=== PATIENT | female | born 1935 | race Caucasian/White ===

== ENCOUNTER 2016-06-24 19:43 | Inpatient (IN) | payer MEDICARE ==
[2016-06-24] MEDS: Sotalol HCl 80 MG TAB PO SCH (22:31)
[2016-06-24] MEDS: Apixaban 5 MG TAB PO SCH (22:37)
[2016-06-24] MEDS: Cephalexin 250 MG CAP PO SCH (22:38)
[2016-06-24] MEDS: Atorvastatin Calcium 10 MG TAB PO SCH (22:38)
[2016-06-24 23:06] VITALS: BMI 20.9
[2016-06-25] MEDS: Oxybutynin Chloride 5 MG TAB PO SCH (08:41)
[2016-06-25] MEDS: Cephalexin 250 MG CAP PO SCH ×4 (08:41→20:34)
[2016-06-25] MEDS: Sotalol HCl 80 MG TAB PO SCH ×2 (08:42→20:38)
[2016-06-25] MEDS: Apixaban 5 MG TAB PO SCH ×2 (08:43→20:37)
[2016-06-25] MEDS: Cyanocobalamin (Vitamin B-12) 1,000 MCG TAB PO SCH (08:45)
[2016-06-25] MEDS: Lisinopril 10 MG TAB PO SCH (14:51)
[2016-06-25] MEDS: traMADol HCl 50 MG TAB PO PRN (17:46)
[2016-06-25] MEDS: Atorvastatin Calcium 10 MG TAB PO SCH (20:37)
[2016-06-26 05:36] LABS: #Basophils 0.1 thou/uL (0.0-0.2); #Eosinphils 0.4 thou/uL (0.0-0.7); #Lymphocytes 2.5 thou/uL (1.20-3.40); #Monocytes 0.8 thou/uL (0.11-0.59); #Neutrophils 4.1 thou/uL (1.40-6.50); %Basophils 1.2 % (0.0-1.0); %Monocytes 10.6 % (0.0-10.0); Hematocrit 37.2 % (36.0-47.0); Mean Platelet Volume 7.7 fL (7.4-10.4); Red Blood Cell (RBC) Count 4.31 mill/uL (4.20-5.40); White Blood Cell (WBC) Count 7.9 thou/uL (4.8-10.8)
[2016-06-26 05:43] LABS: Anion Gap 14 mmol/L (10-20); BUN (Urea Nitrogen) 13 mg/dL (9.8-20.1); Calc. Creatinine Clearance 49 mL/min (70-130); Calcium 8.7 mg/dL (7.8-10.44); Carbon Dioxide 22 mmol/L (23-31); Chloride 95 mmol/L (98-107); Estimated GFR-MDRD 64
[2016-06-26] MEDS ORDERED: Meclizine HCl 25 MG TAB PO PRN (07:11)
[2016-06-26] MEDS ORDERED: Ondansetron ODT 4 MG TAB PO PRN (07:11)
[2016-06-26] MEDS: Cephalexin 250 MG CAP PO SCH ×4 (09:11→21:36)
[2016-06-26] MEDS: Lisinopril 10 MG TAB PO SCH (09:11)
[2016-06-26] MEDS: Apixaban 5 MG TAB PO SCH ×2 (09:12→21:34)
[2016-06-26] MEDS: Cyanocobalamin (Vitamin B-12) 1,000 MCG TAB PO SCH (09:13)
[2016-06-26] MEDS: Sotalol HCl 80 MG TAB PO SCH ×2 (09:13→21:34)
[2016-06-26] MEDS: Oxybutynin Chloride 5 MG TAB PO SCH (09:13)
[2016-06-26] MEDS: traMADol HCl 50 MG TAB PO PRN (21:35)
[2016-06-26] MEDS: Atorvastatin Calcium 10 MG TAB PO SCH (21:36)
[2016-06-27] MEDS: Cephalexin 250 MG CAP PO SCH ×4 (10:03→21:34)
[2016-06-27] MEDS: Oxybutynin Chloride 5 MG TAB PO SCH (10:04)
[2016-06-27] MEDS: Apixaban 5 MG TAB PO SCH ×2 (10:04→21:39)
[2016-06-27] MEDS: Lisinopril 10 MG TAB PO SCH (10:04)
[2016-06-27] MEDS: Sotalol HCl 80 MG TAB PO SCH ×2 (10:05→21:35)
[2016-06-27] MEDS: Cyanocobalamin (Vitamin B-12) 1,000 MCG TAB PO SCH (10:05)
[2016-06-27] MEDS: traMADol HCl 50 MG TAB PO PRN (21:40)
[2016-06-27] MEDS: Atorvastatin Calcium 10 MG TAB PO SCH (21:40)
[2016-06-28] MEDS: Apixaban 5 MG TAB PO SCH ×2 (08:40→21:38)
[2016-06-28] MEDS: Cyanocobalamin (Vitamin B-12) 1,000 MCG TAB PO SCH (08:41)
[2016-06-28] MEDS: Cephalexin 250 MG CAP PO SCH ×4 (08:41→21:38)
[2016-06-28] MEDS: Oxybutynin Chloride 5 MG TAB PO SCH (08:42)
[2016-06-28] MEDS: Polyethylene Glycol 3350 17 GM Packet PO SCH (08:43)
[2016-06-28] MEDS: Lisinopril 10 MG TAB PO SCH (10:00)
[2016-06-28] MEDS: Sotalol HCl 80 MG TAB PO SCH ×2 (12:09→21:39)
[2016-06-28] MEDS: Atorvastatin Calcium 10 MG TAB PO SCH (21:38)
[2016-06-28] MEDS: traMADol HCl 50 MG TAB PO PRN (21:38)
[2016-06-29] MEDS ORDERED: Milk Of Magnesia 30 ML UDCUP PO SCH (07:45)
[2016-06-29] MEDS: Oxybutynin Chloride 5 MG TAB PO SCH (09:26)
[2016-06-29] MEDS: Sotalol HCl 80 MG TAB PO SCH ×2 (09:26→20:45)
[2016-06-29] MEDS: Cephalexin 250 MG CAP PO SCH ×3 (09:26→17:18)
[2016-06-29] MEDS: Cyanocobalamin (Vitamin B-12) 1,000 MCG TAB PO SCH (09:27)
[2016-06-29] MEDS: Polyethylene Glycol 3350 17 GM Packet PO SCH (09:28)
[2016-06-29] MEDS: Apixaban 5 MG TAB PO SCH ×2 (09:28→20:45)
[2016-06-29] MEDS ORDERED: Milk Of Magnesia 30 ML UDCUP PO PRN (10:45)
[2016-06-29] MEDS: Atorvastatin Calcium 10 MG TAB PO SCH (20:45)
[2016-06-30 06:39] LABS: ALT (SGPT) 9 U/L (0-55); AST (SGOT) 20 U/L (5-34); Alkaline Phosphatase 86 U/L (40-150); Anion Gap 12 mmol/L (10-20); BUN (Urea Nitrogen) 14 mg/dL (9.8-20.1); Bilirubin, Total 0.4 mg/dL (0.2-1.2); Calc. Creatinine Clearance 45 mL/min (70-130); Carbon Dioxide 26 mmol/L (23-31); Chloride 95 mmol/L (98-107); Estimated GFR-MDRD 58; Globulin 3.7 g/dL (2.4-3.5); Protein, Total 6.9 g/dL (5.8-8.1)
[2016-06-30] MEDS: Sotalol HCl 80 MG TAB PO SCH ×2 (08:46→20:45)
[2016-06-30] MEDS: Polyethylene Glycol 3350 17 GM Packet PO SCH (08:46)
[2016-06-30] MEDS: Sulfameth/Trimethoprim DS 800-160mg TAB PO SCH ×2 (08:47→20:48)
[2016-06-30] MEDS: Oxybutynin Chloride 5 MG TAB PO SCH (08:47)
[2016-06-30] MEDS: Apixaban 5 MG TAB PO SCH ×2 (08:48→20:44)
[2016-06-30] MEDS: Cyanocobalamin (Vitamin B-12) 1,000 MCG TAB PO SCH (08:48)
[2016-06-30] MEDS: Atorvastatin Calcium 10 MG TAB PO SCH (20:44)
[2016-06-30] MEDS: traMADol HCl 50 MG TAB PO PRN (21:12)
[2016-07-01] MEDS: Apixaban 5 MG TAB PO SCH ×2 (08:43→20:55)
[2016-07-01] MEDS: Polyethylene Glycol 3350 17 GM Packet PO SCH (08:43)
[2016-07-01] MEDS: Cyanocobalamin (Vitamin B-12) 1,000 MCG TAB PO SCH (08:44)
[2016-07-01] MEDS: Oxybutynin Chloride 5 MG TAB PO SCH (08:44)
[2016-07-01] MEDS: Sotalol HCl 80 MG TAB PO SCH ×2 (08:45→20:53)
[2016-07-01] MEDS: Sulfameth/Trimethoprim DS 800-160mg TAB PO SCH ×2 (08:45→20:55)
[2016-07-01] MEDS: traMADol HCl 50 MG TAB PO PRN ×2 (09:05→20:56)
[2016-07-01] MEDS: Atorvastatin Calcium 10 MG TAB PO SCH (20:53)
[2016-07-02] MEDS: Apixaban 5 MG TAB PO SCH ×2 (08:50→21:05)
[2016-07-02] MEDS: Sulfameth/Trimethoprim DS 800-160mg TAB PO SCH ×2 (08:50→21:08)
[2016-07-02] MEDS: Sotalol HCl 80 MG TAB PO SCH ×2 (08:51→21:07)
[2016-07-02] MEDS: Cyanocobalamin (Vitamin B-12) 1,000 MCG TAB PO SCH (08:56)
[2016-07-02] MEDS: Oxybutynin Chloride 5 MG TAB PO SCH (08:57)
[2016-07-02] MEDS: Polyethylene Glycol 3350 17 GM Packet PO SCH (08:58)
[2016-07-02] MEDS: traMADol HCl 50 MG TAB PO PRN (09:07)
[2016-07-02] MEDS: Atorvastatin Calcium 10 MG TAB PO SCH (21:08)
[2016-07-03] MEDS: Sulfameth/Trimethoprim DS 800-160mg TAB PO SCH ×2 (09:34→21:41)
[2016-07-03] MEDS: Sotalol HCl 80 MG TAB PO SCH ×2 (09:34→21:41)
[2016-07-03] MEDS: Oxybutynin Chloride 5 MG TAB PO SCH (09:35)
[2016-07-03] MEDS: Cyanocobalamin (Vitamin B-12) 1,000 MCG TAB PO SCH (09:36)
[2016-07-03] MEDS: Apixaban 5 MG TAB PO SCH ×2 (09:36→21:41)
[2016-07-03] MEDS: Polyethylene Glycol 3350 17 GM Packet PO SCH (09:38)
[2016-07-03] MEDS: Atorvastatin Calcium 10 MG TAB PO SCH (21:41)
[2016-07-03] MEDS: Acetaminophen 325 MG TAB PO PRN (21:44)
[2016-07-03] MEDS: traMADol HCl 50 MG TAB PO PRN (21:45)
[2016-07-04] MEDS: Sulfameth/Trimethoprim DS 800-160mg TAB PO SCH ×2 (09:48→22:11)
[2016-07-04] MEDS: Cyanocobalamin (Vitamin B-12) 1,000 MCG TAB PO SCH (09:49)
[2016-07-04] MEDS: Oxybutynin Chloride 5 MG TAB PO SCH (09:49)
[2016-07-04] MEDS: Apixaban 5 MG TAB PO SCH ×2 (09:50→22:12)
[2016-07-04] MEDS: Sotalol HCl 80 MG TAB PO SCH ×2 (09:50→22:11)
[2016-07-04] MEDS: Polyethylene Glycol 3350 17 GM Packet PO SCH (09:52)
[2016-07-04] MEDS: Atorvastatin Calcium 10 MG TAB PO SCH (22:13)
[2016-07-04] MEDS: traMADol HCl 50 MG TAB PO PRN (22:29)
[2016-07-05] MEDS: Cyanocobalamin (Vitamin B-12) 1,000 MCG TAB PO SCH (09:45)
[2016-07-05] MEDS: Sulfameth/Trimethoprim DS 800-160mg TAB PO SCH (09:45)
[2016-07-05] MEDS: Sotalol HCl 80 MG TAB PO SCH ×2 (09:58→20:42)
[2016-07-05] MEDS: Oxybutynin Chloride 5 MG TAB PO SCH (09:58)
[2016-07-05] MEDS: Polyethylene Glycol 3350 17 GM Packet PO SCH (10:03)
[2016-07-05] MEDS: Apixaban 5 MG TAB PO SCH ×2 (10:04→20:46)
[2016-07-05] MEDS: Atorvastatin Calcium 10 MG TAB PO SCH (20:42)
[2016-07-05] MEDS: Acetaminophen 325 MG TAB PO PRN (20:50)
[2016-07-06] MEDS: Cyanocobalamin (Vitamin B-12) 1,000 MCG TAB PO SCH (08:38)
[2016-07-06] MEDS: Sotalol HCl 80 MG TAB PO SCH ×2 (08:39→20:28)
[2016-07-06] MEDS: Apixaban 5 MG TAB PO SCH ×2 (08:41→20:28)
[2016-07-06] MEDS: Polyethylene Glycol 3350 17 GM Packet PO SCH (08:42)
[2016-07-06] MEDS: Oxybutynin Chloride 5 MG TAB PO SCH (08:42)
[2016-07-06] MEDS ORDERED: SMX/TMP 800-160mg/20 ML UDCUP ONE (17:34)
[2016-07-06] MEDS: Atorvastatin Calcium 10 MG TAB PO SCH (20:28)
[2016-07-06] MEDS: Acetaminophen 325 MG TAB PO PRN (20:28)
[2016-07-07 06:26] VITALS: BP 128/59; TEMP 98.6
[2016-07-07] MEDS: Cyanocobalamin (Vitamin B-12) 1,000 MCG TAB PO SCH (08:15)
[2016-07-07] MEDS: Oxybutynin Chloride 5 MG TAB PO SCH (08:15)
[2016-07-07] MEDS: Apixaban 5 MG TAB PO SCH (08:16)
[2016-07-07] MEDS: Sotalol HCl 80 MG TAB PO SCH (08:24)
[2016-07-07] MEDS: Polyethylene Glycol 3350 17 GM Packet PO SCH (08:25)
--- NOTE | 2016-07-07 12:15 | DIS ---
DATE OF DISCHARGE: 07/07/2016 ADMISSION DIAGNOSES: 1. Right frontal lobe embolic cerebrovascular accident. 2. Status post pacemaker placement. 3. Hyponatremia. 4. Left lower extremity cellulitis. SECONDARY DIAGNOSES: 1. Hypertension. 2. Dizziness. 3. Constipation. PROCEDURES: None. HOSPITAL COURSE: An 80-year-old female who presented to participate with PT, OT , status post admission at [facility] where she initially was seen for dizziness and speech deficit. Subsequent imaging revealed a right frontal CVA; however, at the time of her arrival here, she had no unilateral weakness and clear speech. Prior to arrival during her hospital admission, she had developed atrial fibrillation with RVR and sick sinus syndrome, deemed tachybrady syndrome and subsequently had a pacemaker placed. She has since been started on sotalol and Eliquis and transitioned here. Also, prior to arrival, she had a notable cellulitis of the left lower extremity; she finished up an antibiotic course during her stay here with no further complications. She was able to participate with PT, OT successfully and gradually improved with no notable setbacks. During her stay, her lisinopril ended up being held secondary to some blood pressure readings being on the low side. The patient's blood pressure remained stable off of her RIKY inhibitor and therefore will be withheld going forward and reevaluated further in the outpatient setting. The patient at this time has met the goal set forth by PT, OT and is appropriate for discharge home. DISPOSITION: The patient will return home and participate with continued PT, OT via [facility]. She is to follow up with myself in the clinic next week. DISCHARGE MEDICATIONS: Include acetaminophen 650 mg p.o. q.6 hours p.r.n., Eliquis 2.5 mg p.o. b.i.d., atorvastatin 10 mg p.o. at bedtime, cyanocobalamin 500 mcg p.o. daily, meclizine 25 mg p.o. q.8. p.r.n., oxybutynin 5 mg p.o. daily, sotalol 40 mg p.o. b.i.d., tramadol 50 mg p.o. b.i.d. p.r.n., omeprazole 20 mg p.o. daily. [facility]
== END 2016-07-07 14:00 | disposition home health service (06) | DRG 57 ==
LOC: BURMED 19:43
PROVIDERS: ADMIT Family Medicine; ATTEND Family Medicine
DX: I69.359 Hemiplegia and hemiparesis following cerebral infarction affecting unspecified side (principal); I95.9 Hypotension, unspecified; I49.5 Sick sinus syndrome; L03.116 Cellulitis of left lower limb; E87.1 Hypo-osmolality and hyponatremia; I48.91 Unspecified atrial fibrillation; I10 Essential (primary) hypertension; K59.00 Constipation, unspecified; K21.9 Gastro-esophageal reflux disease without esophagitis; M54.5 Low back pain; R42 Dizziness and giddiness; Z95.0 Presence of cardiac pacemaker
CPT/HCPCS: 36415; 80048; 80053; 85025; G8978-GP-CJ; G8979-GP-CI; G8987-GO-CK; G8988-GO-CI; G9168-GN-CJ; G9169-GN-CI

== ENCOUNTER 2016-12-28 18:05 | Emergency (ER) | payer MEDICARE ==
[2016-12-28] MEDS ORDERED: Bisacodyl 10 MG SUPP ONE (19:11)
[2016-12-28] MEDS ORDERED: Magnesium Citrate 300 ML BOT ONE (19:12)
--- NOTE | 2016-12-29 07:13 | RAD ---
ABDOMEN ONE VIEW 12/28/2016 FINDINGS: A single view shows gas in the large and small bowel, none of which is really dilated. A few air-fl uid levels were seen in a few loops, but in the absence of dilation, it is unlikely that it signifie s obstruction. Soft tissue calcifications are seen in the buttocks. Vascular calcifications are espinal ggested in the abdomen. No free air is seen beneath the diaphragm on this upright film. Scoliosis is present, convex left, with significant disk space narrowing at multiple levels. IMPRESSION: Nonspecific abdominal findings. POS: HOME
== END 2016-12-28 19:32 | disposition home or self-care (01) ==
LOC: BURERS 18:05
DX: K59.00 Constipation, unspecified (principal); I10 Essential (primary) hypertension; I48.91 Unspecified atrial fibrillation; Z79.899 Other long term (current) drug therapy; Z86.73 Personal history of transient ischemic attack (TIA), and cerebral infarction without residual deficits
CPT/HCPCS: 74000

== ENCOUNTER → 2018-04-16 | Emergency (ER) | payer MEDICARE | LOC: BURERS 10:24 | DX: B02.9 Zoster without complications (principal); I10 Essential (primary) hypertension; Z86.73 Personal history of transient ischemic attack (TIA), and cerebral infarction without residual deficits; Z79.899 Other long term (current) drug therapy | CPT/HCPCS: 99282 ==

== ENCOUNTER → 2018-06-09 | Emergency (ER) | payer MEDICARE, MEDICAID ==
[2018-06-09 04:36] LABS: #Basophils 0.1 thou/uL (0.0-0.2); #Eosinphils 0.5 thou/uL (0.0-0.7); #Lymphocytes 2.6 thou/uL (1.20-3.40); #Monocytes 0.7 thou/uL (0.11-0.59); %Basophils 0.9 % (0.0-1.0); %Eosinophils 6.1 % (0.0-10.0); %Lymphocytes 29.2 % (21.0-51.0); %Monocytes 7.5 % (0.0-10.0); %Neutrophils 56.3 % (42.0-75.0); Hemoglobin 15.1 g/dL (12.0-16.0); Mean Corpuscular HGB CONC 33.3 g/dL (32.0-36.0); Mean Corpuscular Hemoglobin 29.8 pg (27.0-31.0); Mean Corpuscular Volume 89.4 fL (78.0-98.0); Mean Platelet Volume 10.2 fL (7.4-10.4); Platelet Count 197 thou/uL (130-400); RBC Distribution Width 13.6 % (11.5-14.5); Red Blood Cell (RBC) Count 5.08 mill/uL (4.20-5.40); White Blood Cell (WBC) Count 8.9 thou/uL (4.8-10.8)
[2018-06-09 04:41] LABS: PTT 30.3 SEC (22.9-36.1); Prothrombin Time 13.1 SEC (12.0-14.7)
[2018-06-09 04:48] LABS: ALT (SGPT) 21 U/L (8-55); AST (SGOT) 32 U/L (5-34); Albumin 4.2 g/dL (3.4-4.8); Alkaline Phosphatase 112 U/L (40-150); Anion Gap 14 mmol/L (10-20); BUN (Urea Nitrogen) 17 mg/dL (9.8-20.1); Bilirubin, Total 0.7 mg/dL (0.2-1.2); Calc. Creatinine Clearance 0 mL/min (70-130); Calcium 10.5 mg/dL (7.8-10.44); Carbon Dioxide 27 mmol/L (23-31); Chloride 102 mmol/L (98-107); Estimated GFR-MDRD 45; Globulin 4.4 g/dL (2.4-3.5); Glucose 118 mg/dL (83-110); Potassium 3.8 mmol/L (3.5-5.1); Protein, Total 8.6 g/dL (6.0-8.3); Sodium 139 mmol/L (136-145)
== END ==
LOC: BURERS 03:31
DX: K92.2 Gastrointestinal hemorrhage, unspecified (principal); K56.41 Fecal impaction; Z79.01 Long term (current) use of anticoagulants; Z79.899 Other long term (current) drug therapy; Z86.73 Personal history of transient ischemic attack (TIA), and cerebral infarction without residual deficits
CPT/HCPCS: 80053; 85025; 85610; 85730; 94760

== ENCOUNTER 2018-06-26 14:03 | Observation (INO) | payer MEDICARE, OTHER ==
[2018-06-26 14:48] LABS: #Basophils 0.1 thou/uL (0.0-0.2); #Eosinphils 0.6 thou/uL (0.0-0.7); #Monocytes 0.8 thou/uL (0.11-0.59); #Neutrophils 4.8 thou/uL (1.40-6.50); %Basophils 1.1 % (0.0-1.0); %Eosinophils 6.9 % (0.0-10.0); %Lymphocytes 31.7 % (21.0-51.0); %Monocytes 8.5 % (0.0-10.0); %Neutrophils 51.8 % (42.0-75.0); Hemoglobin 14.9 g/dL (12.0-16.0); Mean Corpuscular HGB CONC 33.7 g/dL (32.0-36.0); Mean Corpuscular Hemoglobin 30.5 pg (27.0-31.0); Mean Corpuscular Volume 90.5 fL (78.0-98.0); Mean Platelet Volume 9.5 fL (7.4-10.4); Platelet Count 184 thou/uL (130-400); Red Blood Cell (RBC) Count 4.87 mill/uL (4.20-5.40); White Blood Cell (WBC) Count 9.3 thou/uL (4.8-10.8)
[2018-06-26 15:04] LABS: ALT (SGPT) 15 U/L (8-55); AST (SGOT) 27 U/L (5-34); Albumin 3.8 g/dL (3.4-4.8); Alkaline Phosphatase 73 U/L (40-150); Anion Gap 12 mmol/L (10-20); BUN (Urea Nitrogen) 31 mg/dL (9.8-20.1); Bilirubin, Total 0.9 mg/dL (0.2-1.2); Calc. Creatinine Clearance 0 mL/min (70-130); Calcium 10.1 mg/dL (7.8-10.44); Carbon Dioxide 31 mmol/L (23-31); Chloride 98 mmol/L (98-107); Estimated GFR-MDRD 29; Globulin 3.9 g/dL (2.4-3.5); Glucose 119 mg/dL (83-110); Lipase 56 U/L (8-78); Potassium 4.3 mmol/L (3.5-5.1); Protein, Total 7.7 g/dL (6.0-8.3); Sodium 137 mmol/L (136-145)
[2018-06-26 15:34] LABS: Clarity Cloudy (Clear); Specific Gravity, Urine 1.023 (1.002-1.036)
[2018-06-26 15:35] LABS: Bilirubin Small (Negative); Blood, Urine Negative (Negative); Glucose, Urine (Dipstick) Negative (Negative); Leukocyte Negative (Negative); Nitrite Negative (Negative); Protein, Urine (Dipstick) 30 mg/dL (Neg-Trace); Urobilinogen 0.2 mg/dL (0.2-1.0)
[2018-06-26 15:40] LABS: Bacteria/HPF 1+ HPF (None Seen); Crystals/HPF None Seen HPF (Negative); Hyaline Casts/LPF 0-3 HYALINE CAST LPF (0-3 Hyaline); Other Casts/LPF None Seen LPF (0-3 Hyaline); Oval Fat Bodies/HPF None Seen HPF (None Seen); RBC/HPF None Seen HPF (0-3); Renal Epithelial None Seen HPF (0-3); Sperm/HPF None Seen HPF (None Seen); Squamous Epithelial 0-3 HPF (0-3); Transitional Epithelial NONE SEEN HPF (0-3); Trichomonas/HPF None Seen HPF (None Seen); WBC/HPF 0-3 HPF (0-3); Yeast-All Forms None Seen HPF (None Seen)
[2018-06-26 16:09] LABS: CKMB 2.6 ng/mL (0-6.6)
--- NOTE | 2018-06-26 16:32 | RAD ---
PORTABLE CHEST: 06/26/2018 COMPARISON: 06/16/2018 FINDINGS: The heart is normal in size, and the lungs are clear. Some scarring is suggested in the lingular reg ion of the lungs, which was present before. There are no effusions. There is no vascular congestion or edema. The patient's cardiac pacer remains in place and unchanged. IMPRESSION: No acute findings. POS: HOME
[2018-06-26] MEDS ORDERED: Meclizine HCl 25 MG TAB PO PRN (17:59)
[2018-06-26] MEDS: Sodium Chloride 0.9% 1,000 ML IV SCH (18:35)
[2018-06-26] MEDS: Sotalol HCl 80 MG TAB PO SCH (20:27)
[2018-06-26] MEDS: Acetaminophen 325 MG TAB PO SCH (20:27)
[2018-06-26] MEDS: Apixaban 5 MG TAB PO SCH (20:27)
[2018-06-26] MEDS: traMADol HCl 50 MG TAB PO SCH (20:28)
--- NOTE | 2018-06-26 20:28 | HP ---
CHIEF COMPLAINT: Symptomatic hypotension, dehydration. HISTORY OF PRESENT ILLNESS: An 82-year-old female presented to the clinical setting earlier today in a physically deconditioned state accompanied by her daughter. Daughter reports that she was notably weak and unable to effectively ambulate without assistance, which is not at her baseline. Of note, the patient has had 2 recent admissions at [facility] in [place] within the last 1 to 2 months with the first being related to hematochezia, for which this was attributed to internal hemorrhoids and second admission related to encephalopathy with need for treatment for urinary tract infection. The patient has effectively completed her antibiotic course regarding her most recent admission, where she was discharged on 06/18/2018. In the outpatient clinical setting, the patient was notably hypotensive with a blood pressure of 78/52. She does have a history of hypertension, however, is on low-dose antihypertensive therapy, which includes only lisinopril 10 mg p.o. daily. The patient has had a variable appetite with subpar fluid intake. She denies having had a fever. She has had a little bit more confusion with her underlying generalized weakness. Her hypotension has been accompanied with fatigue and dizziness. Secondary to the patient's symptomatic hypotension and dehydrated state, she was sent to the [facility] Emergency Department for intravenous fluids and further workup. In the emergency department, labs revealed a normal CBC, however, CMP did display acute renal insufficiency with an elevated BUN of 31 and creatinine of 1.68 with most recent reading approximately one week and half ago showing a BUN of 13 and a creatinine of 0.86. Other labs were largely stable other than a mild elevation of troponin; however, EKG was stable and she is having no symptoms of chest pain, dyspnea, or orthopnea. Her chest x- ray was notably within normal limits with no acute findings. The patient did receive IV fluids in the emergency department and has began to feel improved. She will be admitted under observation status for further IV fluid administration and we will seek an evaluation via physical therapy and occupational therapy secondary to her physical deconditioning. PAST MEDICAL HISTORY: Includes; 1. Hypertension. 2. Atrial fibrillation. 3. Prior stroke. 4. Urge urinary incontinence. 5. Chronic back pain. 6. Dyslipidemia. PAST SURGICAL HISTORY: Includes; 1. Pacemaker placement. 2. Partial colectomy. 3. Appendectomy. 4. Hysterectomy. 5. Tubal ligation. SOCIAL HISTORY: The patient is a nonsmoker with no illicit drug use or EtOH use. FAMILY HISTORY: Noncontributory. CURRENT MEDICATIONS: Include; 1. Eliquis 2.5 mg p.o. b.i.d. 2. Atorvastatin 10 mg p.o. at bedtime. 3. Lisinopril 10 mg p.o. daily. 4. Meclizine 25 mg p.o. b.i.d. p.r.n. 5. Omeprazole 20 mg p.o. daily. 6. Oxybutynin 5 mg p.o. daily. 7. MiraLAX p.r.n. 8. Sotalol 80 mg p.o. b.i.d. 9. Tramadol 50 mg p.o. b.i.d. 10. Trazodone 100 mg p.o. at bedtime. REVIEW OF SYSTEMS: GENERAL: The patient reports fatigue. Denies fever. EARS, NOSE, AND THROAT: Denies sore throat, nasal drainage, or congestion. CARDIOVASCULAR: Denies chest pain or palpitations. RESPIRATORY: Denies shortness of breath or cough. GASTROINTESTINAL: Denies abdominal pain, nausea, vomiting, diarrhea, or constipation. GENITOURINARY: Denies dysuria. MUSCULOSKELETAL: Complains of chronic back pain. DERM: Denies rash. NEUROLOGIC: Denies headache. She has had some dizziness. LABORATORY DATA: White blood cell is 9.3, H and H are 14.9 and 44.0, platelets are 184. Sodium 137, potassium 4.3, BUN 31, creatinine 1.68, glucose 119, AST 27, ALT 15. Troponin 0.059. Lipase 56. TSH is 2.83. IMAGING DATA: On 06/26/2018, chest x-ray shows no acute findings. PHYSICAL EXAMINATION: VITAL SIGNS: Temperature is 98.1, pulse is 64, respiratory rate is 18, oxygen is 97% on room air, blood pressure is 123/59. GENERAL: The patient is alert. She is tired appearing. Face shows no asymmetry. Eyes, conjunctivae are clear. Extraocular muscles are intact bilaterally. No discharge. HEAD, EYES, EARS, NOSE, AND THROAT: She has dry mucous membrane and scarring to the left tympanic membrane. NECK: Supple without lymphadenopathy. CARDIOVASCULAR: Regular rate and rhythm. Normal S1, S2. No murmurs. RESPIRATORY: Clear to auscultation bilaterally with no wheezes, rales, or rhonchi. GASTROINTESTINAL: Soft, nontender to palpation. No masses. EXTREMITIES: No clubbing, cyanosis, or edema. MUSCULOSKELETAL: She has generalized weakness. 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 NEUROLOGIC: Nonfocal with cranial nerves 2 through 12 grossly intact. ASSESSMENT AND PLAN: 1. Symptomatic hypotension. This has notably improved with receiving intravenous fluid. We will resume her normal saline intravenous fluids overnight at 75 mL an hour with reassessment of labs in the morning. Please note that the patient's blood pressure has stabilized and she is now hemodynamically stable. 2. Dehydration. As per diagnosis #1, this is notably improving and we will continue intravenous fluids. 3. Prerenal azotemia, this is apparently secondary to the patient's poor p.o. intake. I suspect this will be notably improved as we re-evaluate her metabolic panel in the morning. 4. Atrial fibrillation. The patient is rate controlled and is on Eliquis. We will resume this and her rate-controlling medication. 5. Hypertension. The patient now has a normal blood pressure. We will plan to resume her lisinopril tomorrow unless otherwise noted. 6. Physical deconditioning. This is likely secondary to her recent 2 hospitalizations and contributed by her dehydrated state. We will seek an evaluation via physical therapy and occupational therapy in the morning. Of note, she does have [facility] to resume physical therapy and occupational therapy in her home setting upon discharge. 7. Prophylaxis. We will resume the patient's PPI for GI prophylaxis and Eliquis for DVT prophylaxis. Job ID: [id number] [facility]
[2018-06-26] MEDS ORDERED: traZODone HCl 50 MG TAB PO SCH (21:00)
[2018-06-27 04:58] LABS: ALT (SGPT) 14 U/L (8-55); AST (SGOT) 27 U/L (5-34); Albumin 3.1 g/dL (3.4-4.8); Alkaline Phosphatase 60 U/L (40-150); Anion Gap 12 mmol/L (10-20); BUN (Urea Nitrogen) 23 mg/dL (9.8-20.1); Bilirubin, Total 0.7 mg/dL (0.2-1.2); Calc. Creatinine Clearance 0 mL/min (70-130); Calcium 8.8 mg/dL (7.8-10.44); Carbon Dioxide 21 mmol/L (23-31); Chloride 108 mmol/L (98-107); Estimated GFR-MDRD 53; Globulin 3.4 g/dL (2.4-3.5); Glucose 82 mg/dL (83-110); Potassium 4.1 mmol/L (3.5-5.1); Protein, Total 6.5 g/dL (6.0-8.3); Sodium 137 mmol/L (136-145)
[2018-06-27 05:18] LABS: Troponin I 0.027 ng/mL (< 0.028)
[2018-06-27 05:24] LABS: #Basophils 0.1 thou/uL (0.0-0.2); #Eosinphils 0.7 thou/uL (0.0-0.7); #Lymphocytes 3.4 thou/uL (1.20-3.40); #Monocytes 0.7 thou/uL (0.11-0.59); #Neutrophils 2.4 thou/uL (1.40-6.50); %Basophils 1.4 % (0.0-1.0); %Eosinophils 9.4 % (0.0-10.0); %Lymphocytes 47.1 % (21.0-51.0); %Monocytes 9.3 % (0.0-10.0); %Neutrophils 32.8 % (42.0-75.0); Hemoglobin 12.5 g/dL (12.0-16.0); Mean Corpuscular HGB CONC 33.8 g/dL (32.0-36.0); Mean Corpuscular Hemoglobin 30.1 pg (27.0-31.0); Mean Corpuscular Volume 89.1 fL (78.0-98.0); Mean Platelet Volume 9.3 fL (7.4-10.4); Platelet Count 128 thou/uL (130-400); RBC Distribution Width 13.4 % (11.5-14.5); Red Blood Cell (RBC) Count 4.14 mill/uL (4.20-5.40); White Blood Cell (WBC) Count 7.2 thou/uL (4.8-10.8)
[2018-06-27] MEDS: Sodium Chloride 0.9% 1,000 ML IV SCH (05:40)
[2018-06-27] MEDS ORDERED: Polyethylene Glycol 3350 17 GM Packet PO SCH (09:00)
[2018-06-27] MEDS ORDERED: Atorvastatin Calcium 10 MG TAB PO SCH (09:00)
[2018-06-27] MEDS ORDERED: Lisinopril 10 MG TAB PO SCH (09:00)
[2018-06-27] MEDS ORDERED: Oxybutynin 5 MG TAB PO SCH (09:00)
[2018-06-27] MEDS: Acetaminophen 325 MG TAB PO SCH (09:44)
[2018-06-27] MEDS: traMADol HCl 50 MG TAB PO SCH (09:45)
[2018-06-27] MEDS: Apixaban 5 MG TAB PO SCH (09:45)
[2018-06-27] MEDS: Sotalol HCl 80 MG TAB PO SCH (09:46)
[2018-06-27 21:02] VITALS: BP 119/56; TEMP 97.4
== END 2018-06-27 18:46 | disposition swing bed (61) ==
LOC: BURERS 14:03 → BURMED 16:30
PROVIDERS: ADMIT Family Medicine; ATTEND Family Medicine
DX: I95.89 Other hypotension (principal); E86.0 Dehydration; I10 Essential (primary) hypertension; I48.91 Unspecified atrial fibrillation; N39.41 Urge incontinence; G89.29 Other chronic pain; M54.9 Dorsalgia, unspecified; E78.5 Hyperlipidemia, unspecified; Z86.73 Personal history of transient ischemic attack (TIA), and cerebral infarction without residual deficits; Z79.01 Long term (current) use of anticoagulants; Z79.899 Other long term (current) drug therapy; Z88.1 Allergy status to other antibiotic agents; Z88.5 Allergy status to narcotic agent; Z95.0 Presence of cardiac pacemaker; Z90.49 Acquired absence of other specified parts of digestive tract
CPT/HCPCS: 36415; 51701; 71045; 80053; 81003; 81015; 82553; 83690; 84443; 84484; 85025; 87040; 87086; 93005; 94760; 96360; 96361; A4353; G0378

== ENCOUNTER 2018-06-27 15:31 | Inpatient (IN) | payer MEDICARE, OTHER ==
[2018-06-27] MEDS ORDERED: Meclizine HCl 25 MG TAB PO PRN (20:20)
[2018-06-27] MEDS ORDERED: Sodium Chloride 0.9% 1,000 ML IV SCH (20:30)
[2018-06-27] MEDS ORDERED: Sodium Chloride For Inhalation 0.9% 3 ML NEB ONE (20:31)
[2018-06-27] MEDS ORDERED: Sodium Chloride 0.9% 10 ML ONE (20:32)
[2018-06-27] MEDS: traZODone HCl 50 MG TAB PO SCH (21:50)
[2018-06-27] MEDS: Acetaminophen 325 MG TAB PO SCH (21:50)
[2018-06-27] MEDS: traMADol HCl 50 MG TAB PO SCH (21:51)
[2018-06-27] MEDS: Sotalol HCl 80 MG TAB PO SCH (21:52)
[2018-06-27] MEDS: Apixaban 5 MG TAB PO SCH (21:53)
[2018-06-28] MEDS: Oxybutynin 5 MG TAB PO SCH (08:45)
[2018-06-28] MEDS: traMADol HCl 50 MG TAB PO SCH ×2 (08:46→21:22)
[2018-06-28] MEDS: Sotalol HCl 80 MG TAB PO SCH ×2 (08:46→21:24)
[2018-06-28] MEDS: Apixaban 5 MG TAB PO SCH ×2 (08:47→21:24)
[2018-06-28] MEDS: Acetaminophen 325 MG TAB PO SCH ×2 (08:47→21:21)
[2018-06-28] MEDS: Lisinopril 10 MG TAB PO SCH (08:47)
[2018-06-28] MEDS: Atorvastatin Calcium 10 MG TAB PO SCH (08:48)
[2018-06-28] MEDS: Polyethylene Glycol 3350 17 GM Packet PO SCH (08:48)
[2018-06-28] MEDS: traZODone HCl 50 MG TAB PO SCH (21:23)
[2018-06-29] MEDS: Polyethylene Glycol 3350 17 GM Packet PO SCH (08:51)
[2018-06-29] MEDS: Acetaminophen 325 MG TAB PO SCH ×2 (08:52→20:41)
[2018-06-29] MEDS: Lisinopril 10 MG TAB PO SCH (08:52)
[2018-06-29] MEDS: Apixaban 5 MG TAB PO SCH ×2 (08:53→20:44)
[2018-06-29] MEDS: Atorvastatin Calcium 10 MG TAB PO SCH (08:53)
[2018-06-29] MEDS: Sotalol HCl 80 MG TAB PO SCH ×2 (08:54→20:41)
[2018-06-29] MEDS: traMADol HCl 50 MG TAB PO SCH ×2 (08:55→20:42)
[2018-06-29] MEDS: Oxybutynin 5 MG TAB PO SCH (08:56)
[2018-06-29] MEDS: traZODone HCl 50 MG TAB PO SCH (20:41)
[2018-06-30] MEDS: Polyethylene Glycol 3350 17 GM Packet PO SCH (08:48)
[2018-06-30] MEDS: traMADol HCl 50 MG TAB PO SCH ×2 (08:48→21:15)
[2018-06-30] MEDS: Sotalol HCl 80 MG TAB PO SCH ×2 (08:49→21:15)
[2018-06-30] MEDS: Oxybutynin 5 MG TAB PO SCH (08:49)
[2018-06-30] MEDS: Atorvastatin Calcium 10 MG TAB PO SCH (08:50)
[2018-06-30] MEDS: Lisinopril 10 MG TAB PO SCH (08:50)
[2018-06-30] MEDS: Apixaban 5 MG TAB PO SCH ×2 (08:51→21:16)
[2018-06-30] MEDS: Acetaminophen 325 MG TAB PO SCH ×2 (08:52→21:16)
[2018-06-30] MEDS: traZODone HCl 50 MG TAB PO SCH (21:15)
[2018-06-30] MEDS: Megestrol Acetate 400 MG/10 ML UDCUP PO SCH (21:17)
[2018-07-01 00:24] VITALS: BMI 20.2
[2018-07-01] MEDS: Megestrol Acetate 400 MG/10 ML UDCUP PO SCH (09:10)
[2018-07-01] MEDS: Atorvastatin Calcium 10 MG TAB PO SCH (09:58)
[2018-07-01] MEDS: traMADol HCl 50 MG TAB PO SCH ×2 (09:58→20:42)
[2018-07-01] MEDS: Acetaminophen 325 MG TAB PO SCH ×2 (09:58→20:41)
[2018-07-01] MEDS: Polyethylene Glycol 3350 17 GM Packet PO SCH (09:58)
[2018-07-01] MEDS: Lisinopril 10 MG TAB PO SCH (10:00)
[2018-07-01] MEDS: Apixaban 5 MG TAB PO SCH ×2 (10:00→20:41)
[2018-07-01] MEDS: Oxybutynin 5 MG TAB PO SCH (10:01)
[2018-07-01] MEDS: Sotalol HCl 80 MG TAB PO SCH ×2 (10:01→20:43)
[2018-07-01] MEDS ORDERED: Megestrol Acetate 40 MG TAB PO SCH (10:30)
[2018-07-01] MEDS: Megestrol Acetate 40 MG TAB PO SCH (20:41)
[2018-07-01] MEDS: traZODone HCl 50 MG TAB PO SCH (20:41)
[2018-07-02] MEDS: Acetaminophen 325 MG TAB PO SCH ×2 (09:16→20:52)
[2018-07-02] MEDS: Apixaban 5 MG TAB PO SCH ×2 (09:16→20:52)
[2018-07-02] MEDS: Megestrol Acetate 40 MG TAB PO SCH ×2 (09:17→20:52)
[2018-07-02] MEDS: traMADol HCl 50 MG TAB PO SCH ×2 (09:17→20:53)
[2018-07-02] MEDS: Atorvastatin Calcium 10 MG TAB PO SCH (09:17)
[2018-07-02] MEDS: Sotalol HCl 80 MG TAB PO SCH ×2 (09:17→20:54)
[2018-07-02] MEDS: Oxybutynin 5 MG TAB PO SCH (09:18)
[2018-07-02] MEDS: Lisinopril 10 MG TAB PO SCH (09:18)
[2018-07-02] MEDS: Polyethylene Glycol 3350 17 GM Packet PO SCH (09:19)
[2018-07-02] MEDS: traZODone HCl 50 MG TAB PO SCH (20:52)
[2018-07-03] MEDS: Oxybutynin 5 MG TAB PO SCH (09:20)
[2018-07-03] MEDS: Atorvastatin Calcium 10 MG TAB PO SCH (09:20)
[2018-07-03] MEDS: Acetaminophen 325 MG TAB PO SCH ×2 (09:20→21:18)
[2018-07-03] MEDS: Lisinopril 10 MG TAB PO SCH (09:20)
[2018-07-03] MEDS: Megestrol Acetate 40 MG TAB PO SCH ×2 (09:21→21:18)
[2018-07-03] MEDS: Sotalol HCl 80 MG TAB PO SCH ×2 (09:21→21:18)
[2018-07-03] MEDS: traMADol HCl 50 MG TAB PO SCH ×2 (09:22→21:17)
[2018-07-03] MEDS: Apixaban 5 MG TAB PO SCH ×2 (09:22→21:18)
[2018-07-03] MEDS: Polyethylene Glycol 3350 17 GM Packet PO SCH (09:24)
[2018-07-03] MEDS: traZODone HCl 50 MG TAB PO SCH (21:17)
[2018-07-04] MEDS: Polyethylene Glycol 3350 17 GM Packet PO SCH (08:50)
[2018-07-04] MEDS: Acetaminophen 325 MG TAB PO SCH ×2 (08:51→20:53)
[2018-07-04] MEDS: Atorvastatin Calcium 10 MG TAB PO SCH (08:51)
[2018-07-04] MEDS: Oxybutynin 5 MG TAB PO SCH (08:51)
[2018-07-04] MEDS: Apixaban 5 MG TAB PO SCH ×2 (08:51→20:54)
[2018-07-04] MEDS: traMADol HCl 50 MG TAB PO SCH ×2 (08:52→20:53)
[2018-07-04] MEDS: Lisinopril 10 MG TAB PO SCH (08:55)
[2018-07-04] MEDS: Sotalol HCl 80 MG TAB PO SCH ×2 (08:56→20:53)
[2018-07-04] MEDS: Megestrol Acetate 40 MG TAB PO SCH ×2 (08:56→20:53)
[2018-07-04] MEDS: traZODone HCl 50 MG TAB PO SCH (20:53)
[2018-07-05 06:04] VITALS: BP 111/52; TEMP 98.4
[2018-07-05] MEDS: Acetaminophen 325 MG TAB PO SCH (08:17)
[2018-07-05] MEDS: Megestrol Acetate 40 MG TAB PO SCH (08:17)
[2018-07-05] MEDS: traMADol HCl 50 MG TAB PO SCH (08:18)
[2018-07-05] MEDS: Atorvastatin Calcium 10 MG TAB PO SCH (08:18)
[2018-07-05] MEDS: Lisinopril 10 MG TAB PO SCH (08:19)
[2018-07-05] MEDS: Oxybutynin 5 MG TAB PO SCH (08:19)
[2018-07-05] MEDS: Apixaban 5 MG TAB PO SCH (08:20)
[2018-07-05] MEDS: Polyethylene Glycol 3350 17 GM Packet PO SCH (08:21)
[2018-07-05] MEDS: Sotalol HCl 80 MG TAB PO SCH (08:22)
--- NOTE | 2018-07-08 10:02 | DIS ---
DATE OF ADMISSION: 06/27/2018 DATE OF DISCHARGE: 07/05/2018 ADMISSION DIAGNOSES: 1. Symptomatic hypotension. 2. Dehydration. 3. Prerenal azotemia. 4. Physical deconditioning. SECONDARY DIAGNOSES: 1. Atrial fibrillation. 2. Hypertension. 3. Dementia. PROCEDURES: None. HOSPITAL COURSE: An 82-year-old female, who initially presented in the clinical setting with her daughter with generalized weakness and poor p.o. intake. She was notably hypotensive in the outpatient setting, thought to be secondary to dehydration. Due to this, she was admitted for observation admission. Lab work obtained revealed prerenal azotemia. The patient was provided intravenous fluids, which rapidly corrected her hypotensive state and acute renal decline. The patient's symptoms associated with hypotension, resolved; however, her physical deconditioning required prolonged stay, thus she was transitioned from observation admission to swing-bed status to participate with physical therapy and occupational therapy. The patient was able to participate with Physical Therapy and Occupational Therapy and has since improved back to her baseline status. The patient's p.o. intake does remain variable and poor at times. She was started on Megace for this accordingly to help stimulate her appetite; this will be resumed as an outpatient. At this point, the patient has satisfactorily met the goal set forth by Physical Therapy and Occupational Therapy for her to return to her home setting, where she is cared for by her family members. DISPOSITION: The patient will be discharged home. She may follow up with myself in the clinic next week. She will have continued care via her family. DISCHARGE MEDICATIONS: 1. Eliquis 2.5 mg p.o. b.i.d. 2. Atorvastatin 10 mg p.o. at bedtime. 3. Lisinopril 10 mg p.o. daily. 4. Meclizine 25 mg p.o. b.i.d. p.r.n. 5. Megace 40 mg p.o. b.i.d. 6. Oxybutynin 5 mg p.o. daily. 7. Protonix 40 mg p.o. daily. 8. MiraLax 17 g p.o. daily. 9. Sotalol 80 mg p.o. b.i.d. 10. Tramadol 50 mg p.o. b.i.d. 11. Trazodone 100 mg p.o. at bedtime. Job ID: [id number] [facility]
== END 2018-07-05 12:30 | disposition home or self-care (01) | DRG 316 ==
LOC: BURMED 18:40
PROVIDERS: ADMIT Family Medicine; ATTEND Family Medicine
DX: I95.9 Hypotension, unspecified (principal); E86.0 Dehydration; R79.89 Other specified abnormal findings of blood chemistry; R53.83 Other fatigue; I48.91 Unspecified atrial fibrillation; I10 Essential (primary) hypertension; F03.90 Unspecified dementia, unspecified severity, without behavioral disturbance, psychotic disturbance, mood disturbance, and anxiety
CPT/HCPCS: S0179

== ENCOUNTER → 2018-07-09 | Emergency (ER) | payer MEDICARE, OTHER ==
[2018-07-09 17:28] LABS: #Basophils 0.1 thou/uL (0.0-0.2); #Eosinphils 0.6 thou/uL (0.0-0.7); #Lymphocytes 3.6 thou/uL (1.20-3.40); #Monocytes 0.6 thou/uL (0.11-0.59); #Neutrophils 2.5 thou/uL (1.40-6.50); %Basophils 1.1 % (0.0-1.0); %Eosinophils 8.5 % (0.0-10.0); %Lymphocytes 48.9 % (21.0-51.0); %Monocytes 7.7 % (0.0-10.0); %Neutrophils 33.8 % (42.0-75.0); Hemoglobin 12.9 g/dL (12.0-16.0); Mean Corpuscular HGB CONC 32.5 g/dL (32.0-36.0); Mean Corpuscular Hemoglobin 29.9 pg (27.0-31.0); Mean Corpuscular Volume 92.1 fL (78.0-98.0); Mean Platelet Volume 9.7 fL (7.4-10.4); Platelet Count 165 thou/uL (130-400); Red Blood Cell (RBC) Count 4.32 mill/uL (4.20-5.40); White Blood Cell (WBC) Count 7.4 thou/uL (4.8-10.8)
[2018-07-09 17:42] LABS: ALT (SGPT) 22 U/L (8-55); AST (SGOT) 30 U/L (5-34); Albumin 3.4 g/dL (3.4-4.8); Alkaline Phosphatase 66 U/L (40-150); Anion Gap 11 mmol/L (10-20); BUN (Urea Nitrogen) 15 mg/dL (9.8-20.1); Bilirubin, Total 0.5 mg/dL (0.2-1.2); Calc. Creatinine Clearance 0 mL/min (70-130); Calcium 9.2 mg/dL (7.8-10.44); Carbon Dioxide 24 mmol/L (23-31); Chloride 101 mmol/L (98-107); Estimated GFR-MDRD 49; Globulin 3.5 g/dL (2.4-3.5); Glucose 91 mg/dL (83-110); Potassium 4.5 mmol/L (3.5-5.1); Protein, Total 6.9 g/dL (6.0-8.3); Sodium 131 mmol/L (136-145)
[2018-07-09 18:39] LABS: Bilirubin Negative (Negative); Blood, Urine Trace (Negative); Clarity SLIGHTLY (Clear); Glucose, Urine (Dipstick) Negative (Negative); Leukocyte Moderate (Negative); Nitrite Negative (Negative); Protein, Urine (Dipstick) Negative (Neg-Trace); Urobilinogen 0.2 mg/dL (0.2-1.0); pH, Urine 6.5 (5.0-9.0)
[2018-07-09 18:50] LABS: Bacteria/HPF Rare-Few HPF (None Seen); Crystals/HPF None Seen HPF (Negative); Hyaline Casts/LPF NONE SEEN LPF (0-3 Hyaline); Other Casts/LPF None Seen LPF (0-3 Hyaline); Oval Fat Bodies/HPF None Seen HPF (None Seen); RBC/HPF 0-3 HPF (0-3); Renal Epithelial None Seen HPF (0-3); Sperm/HPF None Seen HPF (None Seen); Squamous Epithelial 0-3 HPF (0-3); Transitional Epithelial NONE SEEN HPF (0-3); Trichomonas/HPF None Seen HPF (None Seen); Yeast-All Forms None Seen HPF (None Seen)
--- NOTE | 2018-07-09 20:00 | RAD ---
PORTABLE CHEST: 07/09/18 An AP portable film at 1722 is compared with a 06/26/18 study. The heart remains normal in size. There is no congestive change or pleural effusion. The cardiac pace r remains in place. Areas of scarring are seen in the left lung around the hilum and left heart borde r. No acute infiltrates were seen. IMPRESSION: Chronic changes but no acute findings. POS: HOME
== END ==
LOC: BURERS 16:45
DX: M62.50 Muscle wasting and atrophy, not elsewhere classified, unspecified site (principal); I48.91 Unspecified atrial fibrillation; I10 Essential (primary) hypertension; Z86.73 Personal history of transient ischemic attack (TIA), and cerebral infarction without residual deficits; Z87.891 Personal history of nicotine dependence; Z79.899 Other long term (current) drug therapy
CPT/HCPCS: 71045; 80053; 81003; 81015; 83605; 83880; 84484; 85025; 94760; 96360